=== PATIENT | male | born 2000 | race Caucasian/White ===

== ENCOUNTER 2021-01-10 23:45 | Emergency (ER) | payer OTHER ==
[~2021-01-10] VITALS: Ht 190.5 cm; Wt 136.1 kg
[2021-01-11 01:50] LABS: URINE AMPHETAMINES < 1000 (1000ng/ml); URINE BARBITURATES < 200 (200ng/ml); URINE BENZODIAZEPINES < 200 (200ng/ml); URINE CANNABINOIDS (THC) > 50 (50ng/ml); URINE COCAINE < 300 (300ng/ml); URINE METHADONE < 300 (300ng/ml); URINE OPIATES < 300 (300ng/ml); URINE PHENCYCLIDINE < 25 (25ng/ml)
== END 2021-01-11 03:56 | disposition home or self-care (01) ==
LOC: ED 23:45
PROVIDERS: Emergency Medicine
DX: F41.9 Anxiety disorder, unspecified (principal)